=== PATIENT | male | born 1985 ===

== ENCOUNTER 2017-11-18 14:26 | Emergency (ER) | payer BC ==
--- NOTE | 2017-11-18 14:59 | UC ---
Eye Complaint HPI - HPI Summary HPI Summary: PATIENT WITH A KNOWN HISTORY OF SEASONAL ALLERGIES PRESENTS WITH 10 DAYS OF ITCHY, WATERY EYES THAT ARE GETTING WORSE. HE ALSO HAS NASAL CONGESTION AND RHINITIS. HE DENIES ANY VISUAL DISTURBANCE, FOREIGN BODY SENSATION, PAIN WITH EYE MOVEMENT. NO NAUSEA OR HEADACHE. NO FEVER. IS USING FLONASE STARTED LORATADINE 2 DAYS AGO. HAS USED PATANOL EYEDROPS IN THE PAST WITH GOOD EFFECT. - History of Current Complaint Chief Complaint: UCEye Stated Complaint: EYE ISSUE Time Seen by Provider: 11/18/17 14:39 Hx Obtained From: Patient Onset/Duration: Gradual Onset, Lasting Days, Still Present Timing: Constant Severity Initially: Moderate Severity Currently: Moderate Pain Intensity: 0 Pain Scale Used: 0-10 Numeric Location of Injury: Conjunctiva Aggravating Factor(s): Nothing Alleviating Factor(s): Nothing Associated Signs And Symptoms: Positive: Drainage (Clear). Negative: Photophobia, Vision Impairment Bilateral, Fever - Allergies/Home Medications Allergies/Adverse Reactions: Allergies Allergy/AdvReac Type Severity Reaction Status Date / Time Sulfa (Sulfonamide Allergy Unknown Verified 11/18/17 14:42 Antibiotics) Reaction Details Home Medications: Home Medications Fluticasone NASAL SPRAY 50MCG* [Flonase NASAL SPRAY 50MCG*] 2 spray BOTH NARES DAILY 11/18/17 [History Confirmed 11/18/17] Lisinopril 10 mg PO DAILY 11/18/17 [History Confirmed 11/18/17] Loratadine 10 mg PO DAILY 11/18/17 [History Confirmed 11/18/17] PMH/Surg Hx/FS Hx/Imm Hx - Additional Past Medical History Additional PMH: ALLERGIES Cardiovascular History: Hypertension GI/ History: Ulcer - Surgical History Surgical History: None - Family History Known Family History: Positive: Hypertension - Social History Alcohol Use: None Substance Use Type: None Smoking Status (MU): Never Smoked Tobacco Review of Systems Constitutional: Negative Eyes: Drainage, Eye Redness ENT: Nasal Discharge Respiratory: Negative Cardiovascular: Negative Gastrointestinal: Negative All Other Systems Reviewed And Are Negative: Yes Physical Exam Triage Information Reviewed: Yes Appearance: Well-Appearing, No Pain Distress, Well-Nourished Vital Signs: Initial Vital Signs Temp 99.1 F 11/18/17 14:44 Pulse 79 11/18/17 14:44 Resp 18 11/18/17 14:44 BP 137/84 11/18/17 14:44 Pulse Ox 96 11/18/17 14:44 Vital Signs Reviewed: Yes Eyes: Positive: Conjunctiva Inflamed, Discharge - CLEAR ENT: Positive: Hearing grossly normal, Pharynx normal, TMs normal Neck: Positive: Supple, Nontender, No Lymphadenopathy Respiratory Exam: Normal Cardiovascular Exam: Normal Abdomen Description: Positive: Soft Musculoskeletal: Positive: No Edema Neurological: Positive: Alert Psychological: Positive: Age Appropriate Behavior Skin: Negative: rashes Eye Complaint Course/Dx - Differential Dx/Diagnosis Provider Diagnoses: ALLERGIC CONJUNCTIVITIS Discharge - Sign-Out/Discharge Documenting (check all that apply): Discharge/Admit/Transfer - Discharge Plan Condition: Stable Disposition: HOME Prescriptions: Olopatadine 0.1% OPHTH (NF) [Patanol 0.1% OPHTH (NF)] 1 drop BOTH EYES BID PRN # 1 btl PRN Reason: Allergy Symptoms predniSONE TAB* [Deltasone TAB*] 40 mg PO DAILY #10 tab Patient Education Materials: Allergies (ED), Conjunctivitis (ED) Referrals: Jose Manuel Villalba MD [Medical Doctor] - If Needed Additional Instructions: CONTINUE YOUR FLONASE AND LORATADINE DAILY. IF YOUR SYMPTOMS DO NOT IMPROVE WITH THE ALLERGY EYE DROPS AND YOUR OTC TREATMENTS GO AHEAD AND FILL THE RX FOR PREDNISONE. FOLLOW-UP WITH YOUR PCP IF YOU DO NOT IMPROVE EXPECTED. IOF YOUR ALLERGIES CONTINUE TO BE PROBLEMATIC CONSIDER EVALUATION BY AN TYPING SECRETARY. [facility] Address: [facility] [address], [place] [address] [facility] [address] [place], [place] [address]tino Walters, [address] [place], [place] [address] - Billing Disposition and Condition Condition: STABLE Disposition: HOME
== END 2017-11-18 15:10 | disposition home or self-care (01) ==
LOC: UCEAST 14:26
DX: H10.10 Acute atopic conjunctivitis, unspecified eye (principal); Z88.2 Allergy status to sulfonamides
CPT/HCPCS: 99202; G0463

== ENCOUNTER 2019-05-08 15:49 | Emergency (ER) | payer BC ==
[2019-05-08 17:37] LABS: Influenza A Molecular NEGATIVE (Negative); Influenza B Molecular NEGATIVE (Negative)
--- NOTE | 2019-05-08 17:38 | UC ---
FLU HPI - HPI Summary HPI Summary: 4-5 DAYS OF COUGH, SINUS CONGESTION, RHINITIS, CHRISTOPHER, ST, MYALGIAS, FATIGUE. NO DOCUMENTED FEVER BUT TEMP 99.7 WITH TYLENOL ON BOARD. DAUGHTER JUST TX FOR PNA. - History of Current Complaint Chief Complaint: UCGeneralIllness Stated Complaint: RAPID HEARTBEAT Time Seen by Provider: 05/08/19 16:55 Hx Obtained From: Patient Onset/Duration: Gradual Onset, Lasting Days, Still Present Severity Currently: Moderate Severity Initially: Moderate Pain Intensity: 2 Pain Scale Used: 0-10 Numeric Associated Signs & Symptoms: Positive: Fever, Myalgia, Cough, Sore Throat, Nasal Congestion - Allergy/Home Medications Allergies/Adverse Reactions: Allergies Allergy/AdvReac Type Severity Reaction Status Date / Time Sulfa (Sulfonamide Allergy Unknown Verified 05/08/19 16:22 Antibiotics) Reaction Details Home Medications: Home Medications Acetaminophen [Acetaminophen Extra Strength] 500 mg PO PRN 05/08/19 [History] Dm/Acetaminophen/Doxylamine [Vicks Nyquil Liquicaps] 1 each PO PRN 05/08/19 [ History] Lisinopril/Hydrochlorothiazide [Lisinopril-Hctz 20-25 mg Tab] 1 each PO DAILY [History Confirmed 05/08/19] PMH/Surg Hx/FS Hx/Imm Hx Cardiovascular History: Hypertension - Surgical History Surgical History: None - Family History Known Family History: Positive: Hypertension - Social History Alcohol Use: None Substance Use Type: None Smoking Status (MU): Never Smoked Tobacco Review of Systems All Other Systems Reviewed And Are Negative: Yes Constitutional: Positive: Chills, Fatigue ENT: Positive: Sore Throat, Nasal Discharge Respiratory: Positive: Cough Cardiovascular: Positive: Palpitations Gastrointestinal: Positive: Negative Genitourinary: Positive: Negative Neurological: Positive: Headache Physical Exam Triage Information Reviewed: Yes Appearance: No Pain Distress, Well-Nourished, Ill-Appearing - MILD - SEEMS FATIGUED Vital Signs: Initial Vital Signs Temp 99.7 F 05/08/19 16:03 Pulse 114 05/08/19 16:03 Resp 18 05/08/19 16:03 BP 151/89 05/08/19 16:03 Pulse Ox 95 05/08/19 16:03 Laboratory Tests 05/08/19 17:25 Influenza A (Rapid) Negative Influenza B (Rapid) Negative Vital Signs Reviewed: Yes Eyes: Positive: Conjunctiva Clear ENT: Positive: Hearing grossly normal, Pharynx normal, Nasal congestion, TMs normal Neck: Positive: Supple, Nontender, No Lymphadenopathy Respiratory: Positive: No respiratory distress, No accessory muscle use, Rhonchi - BASES Cardiovascular: Positive: Tachycardia Abdomen Description: Positive: Soft Musculoskeletal: Positive: No Edema Neurological: Positive: Alert, Muscle Tone Normal Psychological: Positive: Age Appropriate Behavior Skin: Negative: Rashes Diagnostics - Radiology CXR Radiology Interpretation Completed By: Radiologist Summary of Radiographic Findings: No acute cardiopulmonary process by radiograph - EKG Cardiac Rate: Tachycardia - 108BPM Cardiac Rhythm: Sinus: Normal Ectopy: None ST Segment: Normal Flu Course/Dx - Course Course Of Treatment: FLU SWAB NEGATIVE. CHEST X-RAY UNREMARKABLE. EKG SHOWS TACHYCARDIA BUT NO ST- T WAVE CHANGES INDICATIVE OF ISCHEMIA. PATIENT DENIES CHEST PAIN OR SHORTNESS OF BREATH. STATES HIS FEELING OF PALPITATIONS HAS RESOLVED SINCE BEING HERE IN THE AND DRINKING SOME WATER. REPEAT HEART RATE IS 88 BPM. GIVEN HIS PRESENTATION AND SICK CONTACTS AT HOME WILL COVER WITH ANTIBIOTICS. FOLLOW-UP IF NOT IMPROVING WITH TREATMENT. - Differential Dx/Diagnosis Provider Diagnosis: Acute rhinosinusitis Discharge ED - Sign-Out/Discharge Documenting (check all that apply): Patient Departure All imaging exams completed and their final reports reviewed: Yes - Discharge Plan Condition: Stable Disposition: HOME Prescriptions: Azithromycin 500 mg PO DAILY #5 tablet Patient Education Materials: Rhinosinusitis (ED) Referrals: Jose Manuel Villalba MD [Primary Care Provider] - If Needed Additional Instructions: FLU SWAB NEGATIVE. CHEST X-RAY UNREMARKABLE. GIVEN YOUR CLINICAL PRESENTATION AND SICK CONTACTS AT HOME WILL GO AHEAD AND COVER YOU FOR INFECTION WITH AZITHROMYCIN ONCE DAILY FOR 5 DAYS. REST, HYDRATE, OTC MEDICATIONS NEEDED FOR FEVER AND DISCOMFORT. FOLLOW-UP WITH YOUR PCP IF YOU'RE NOT FEELING IMPROVED OVER THE NEXT 2 OR 3 DAYS. - Billing Disposition and Condition Condition: STABLE Disposition: Home
[2019-05-08 18:26] VITALS: BP 149/85
== END 2019-05-08 18:19 | disposition home or self-care (01) ==
LOC: UCEAST 15:49
DX: J32.9 Chronic sinusitis, unspecified (principal); M79.10 Myalgia, unspecified site; J02.9 Acute pharyngitis, unspecified; I10 Essential (primary) hypertension; R53.83 Other fatigue; Z79.899 Other long term (current) drug therapy; Z88.2 Allergy status to sulfonamides
CPT/HCPCS: 71046; 93005; 99212; G0463

== ENCOUNTER 2019-06-30 16:09 | Emergency (ER) | payer BC ==
[2019-06-30 16:16] VITALS: BP 140/91
--- NOTE | 2019-06-30 16:22 | UC ---
Ear Complaint HPI - HPI Summary HPI Summary: right ear pain and pain in throat on right side---no fevers does have a cough - History of Current Complaint Chief Complaint: UCRespiratory Stated Complaint: EAR PAIN Time Seen by Provider: 06/30/19 16:20 Hx Obtained From: Patient Onset/Duration: Gradual Onset, Lasting Weeks - 2, Still Present Pain Intensity: 5 Pain Scale Used: 0-10 Numeric Aggravating Factors: Nothing Alleviating Factors: Nothing - Allergies/Home Medications Allergies/Adverse Reactions: Allergies Allergy/AdvReac Type Severity Reaction Status Date / Time Sulfa (Sulfonamide Allergy Unknown Verified 06/30/19 16:16 Antibiotics) Reaction Details Home Medications: Home Medications Ibuprofen 400 mg PO 06/30/19 [History] PMH/Surg Hx/FS Hx/Imm Hx Previously Healthy: Yes - Surgical History Surgical History: None - Family History Known Family History: Positive: Hypertension - Social History Occupation: Employed Full-time Lives: With Family Alcohol Use: None Substance Use Type: None Smoking Status (MU): Never Smoked Tobacco Review of Systems All Other Systems Reviewed And Are Negative: Yes Constitutional: Positive: Negative Skin: Positive: Negative Eyes: Positive: Negative ENT: Positive: Sore Throat, Ear Ache, Nasal Discharge Respiratory: Positive: Cough Cardiovascular: Positive: Negative Gastrointestinal: Positive: Negative Genitourinary: Positive: Negative Motor: Positive: Negative Neurovascular: Positive: Negative Musculoskeletal: Positive: Negative Neurological: Positive: Negative Psychological: Positive: Negative Is Patient Immunocompromised?: No Physical Exam Triage Information Reviewed: Yes Appearance: Well-Appearing, No Pain Distress, Well-Nourished Vital Signs: Initial Vital Signs Temp 98.1 F 06/30/19 16:13 Pulse 84 06/30/19 16:13 Resp 18 06/30/19 16:13 BP 140/91 06/30/19 16:13 Pulse Ox 100 06/30/19 16:13 Vital Signs Reviewed: Yes Eye Exam: Normal Eyes: Positive: Conjunctiva Clear ENT Exam: Normal ENT: Positive: Normal ENT inspection, Hearing grossly normal, Pharyngeal erythema, Nasal congestion, Nasal drainage, TMs normal - right ear buldging, TM bulging - right, Uvula midline. Negative: Tonsillar swelling, Tonsillar exudate , Trismus, Muffled voice, Hoarse voice, Dental tenderness, Sinus tenderness Dental Exam: Normal Neck exam: Normal Neck: Positive: Supple, Nontender, No Lymphadenopathy Respiratory Exam: Normal Respiratory: Positive: Chest non-tender, Lungs clear, Normal breath sounds, No respiratory distress, No accessory muscle use Cardiovascular Exam: Normal Cardiovascular: Positive: RRR, No Murmur, Pulses Normal, Brisk Capillary Refill Musculoskeletal Exam: Normal Musculoskeletal: Positive: Strength Intact, ROM Intact, No Edema Neurological Exam: Normal Neurological: Positive: Alert, Muscle Tone Normal Psychological Exam: Normal Skin Exam: Normal Diagnostics - Laboratory Lab Results: influenza a/b- Ear Complaint Course/Dx - Course Course Of Treatment: Augmentin, Tylenol, ibuprofen follow with pcp prn - Differential Dx/Diagnosis Provider Diagnosis: Right otitis media with effusion Discharge ED - Sign-Out/Discharge Documenting (check all that apply): Patient Departure All imaging exams completed and their final reports reviewed: No Studies - Discharge Plan Condition: Stable Disposition: HOME Prescriptions: Amoxicillin/Clavulanate TAB* [Augmentin TAB 875*] 875 mg PO BID #20 tab Patient Education Materials: Ear Infection (ED), Hypertension (ED) Referrals: Jose Manuel Villalba MD [Primary Care Provider] - 2 Weeks - Billing Disposition and Condition Condition: STABLE Disposition: Home
== END 2019-06-30 16:39 | disposition home or self-care (01) ==
LOC: UCEAST 16:09
DX: H66.91 Otitis media, unspecified, right ear (principal); H93.8X1 Other specified disorders of right ear; J02.9 Acute pharyngitis, unspecified; R05 Cough; Z88.2 Allergy status to sulfonamides
CPT/HCPCS: 99212; G0463

== ENCOUNTER 2019-09-22 13:38 | Emergency (ER) | payer BC ==
[2019-09-22 14:46] VITALS: BP 136/89
--- NOTE | 2019-09-22 14:59 | UC ---
Complaint Male HPI - HPI Summary HPI Summary: patient has had mild suprapubic pain for past 10 days. denies any possible STI exposure, has had urinary frequency for 2 days - History of Current Complaint Chief Complaint: UCGU Stated Complaint: URINARY COMPLAINT Time Seen by Provider: 09/22/19 14:27 Hx Obtained From: Patient Onset/Duration: Gradual Onset Timing: Intermittent Severity Initially: Mild Severity Currently: Moderate Pain Intensity: 5 Location: Suprapubic Character: Burning Aggravating Factor(s): Voiding Alleviating Factor(s): Nothing Associated Signs And Symptoms: Positive: Dysuria. Negative: Back Pain, Fever, Hematuria, Constipation, Rectal Pain, Nausea - Allergies/Home Medications Allergies/Adverse Reactions: Allergies Allergy/AdvReac Type Severity Reaction Status Date / Time Sulfa (Sulfonamide Allergy Unknown Verified 06/30/19 16:16 Antibiotics) Reaction Details Home Medications: Home Medications Acetaminophen [Acetaminophen Extra Strength] 500 mg PO ONCE 05/08/19 [History Confirmed 06/30/19] Lisinopril/Hydrochlorothiazide [Lisinopril-Hctz 20-25 mg Tab] 1 each PO DAILY [History Confirmed 06/30/19] Ibuprofen 400 mg PO 06/30/19 [History] Ciprofloxacin TAB* [Cipro 500 MG TAB*] 500 mg PO BID #20 tab 09/22/19 [Rx] PMH/Surg Hx/FS Hx/Imm Hx Previously Healthy: Yes Cardiovascular History: Hypertension - Surgical History Surgical History: None - Family History Known Family History: Positive: Hypertension - Social History Occupation: Employed Full-time Lives: With Family Alcohol Use: None Substance Use Type: None Smoking Status (MU): Never Smoked Tobacco Review of Systems All Other Systems Reviewed And Are Negative: Yes Constitutional: Positive: Negative. Negative: Fever, Chills, Fatigue Respiratory: Positive: Negative. Negative: Shortness Of Breath, Cough Cardiovascular: Positive: Negative. Negative: Chest Pain Gastrointestinal: Positive: Abdominal Pain. Negative: Vomiting, Diarrhea, Nausea Genitourinary: Positive: Dysuria, Frequency, Urgency. Negative: Vaginal/Penile Burning, Vaginal/Penile Discharge, Vaginal/Penile Pain Neurovascular: Positive: Negative Musculoskeletal: Positive: Negative Neurological/Mental Status: Positive: Negative Psychological: Positive: Negative Is Patient Immunocompromised?: No Physical Exam Triage Information Reviewed: Yes Appearance: Well-Appearing, No Pain Distress, Well-Nourished Vital Signs: Initial Vital Signs Temp 98.3 F 09/22/19 14:40 Pulse 89 09/22/19 14:40 Resp 16 09/22/19 14:40 BP 136/89 09/22/19 14:40 Pulse Ox 98 09/22/19 14:40 Vital Signs Reviewed: Yes Respiratory Exam: Normal Respiratory: Positive: Lungs clear Cardiovascular Exam: Normal Cardiovascular: Positive: RRR Abdominal Exam: Normal Abdomen Description: Positive: Nontender, No Organomegaly, Soft. Negative: CVA Tenderness (R), CVA Tenderness (L) Neurological Exam: Normal Psychological Exam: Normal Skin Exam: Normal Skin: Negative: Rashes Complaint Male Course/Dx - Differential Dx/Diagnosis Differential Diagnosis/HQI/PQRI: Ureteral Calculi, Urinary Tract Infection, Other - STI Provider Diagnosis: Dysuria, Hematuria Discharge ED - Sign-Out/Discharge Documenting (check all that apply): Patient Departure All imaging exams completed and their final reports reviewed: No Studies - Discharge Plan Condition: Good Disposition: HOME Prescriptions: Ciprofloxacin TAB* [Cipro 500 MG TAB*] 500 mg PO BID #20 tab Patient Education Materials: Dysuria (ED) Referrals: Jose Manuel Villalba MD [Primary Care Provider] - 7 Days (follow-up for blood in urine) Additional Instructions: we are sending a urine culture sample - follow-up with results start antibiotic and take as directed drink plenty of fluids - Billing Disposition and Condition Condition: GOOD Disposition: Home
== END 2019-09-22 15:23 | disposition home or self-care (01) ==
LOC: UCEAST 13:38
DX: R30.0 Dysuria (principal); R31.9 Hematuria, unspecified; R10.30 Lower abdominal pain, unspecified; I10 Essential (primary) hypertension; Z79.899 Other long term (current) drug therapy; Z88.2 Allergy status to sulfonamides
CPT/HCPCS: 81003; 87086; 99212; G0463